=== PATIENT | male | born 1975 | race Caucasian/White ===

== ENCOUNTER 2016-11-14 13:21 | Emergency (ER) | payer BC ==
[2016-11-14 13:30] VITALS: BP 127/95
--- OUTSIDE RECORDS SUMMARY | 2016-11-14 13:41 | XMS REPORT | Continuity of Care Document ---
:1975 Demographics Home Phone [phone] Preferred Language Unknown Marital Status Unknown Nondenominational Affiliation Unknown Race Unknown Ethnic Group Unknown Author Organization [employer] [place] [address] Care Team Providers Name Role Phone Unavailable Primary Care Provider Unavailable Source Comments This disclosure is being made pursuant to the [employer] program and maynot contain all information available regarding this patient.[employer] Active Allergies and Adverse Reactions Not on File Current Medications Be aware that medications may not be up to date as of this document. Alwaysverify current medications with the patient. Not on file Active Problems Not on file Social History Tobacco Use Types Packs/Day Years Used Date Never Assessed Plan of Care Health Maintenance Due Date Last Done Comments Retired-Pertussis Vaccine Adult 1995 Retired-Tetanus Vaccine Adult 1995 Retired-INFLUENZA VACCINE 05/13/2015 Results from Last 3 Months Not on file
--- OUTSIDE RECORDS SUMMARY | 2016-11-14 13:41 | XMS REPORT | Continuity of Care Document ---
:1975 Author Organization [facility] ([facility]) Address [place] [address] Phone [phone] Care Team Providers Name Role Phone Provider, No-Primary Care Primary Care Provider Unavailable Source Comments This disclosure is being made pursuant to the Care Everywhere program, applicable federal and state laws, and may not contain all informaitonavailable regarding this patient.[facility] ([facility]) Active Allergies and Adverse Reactions No Known Allergies Current Medications No known medications Active Problems Not on file Social History Tobacco Use Types Packs/Day Years Used Date Never Assessed Last Filed Vital Signs Vital Sign Reading Time Taken Blood Pressure 154/94 07/21/2009 1:05 PM [employer] Pulse 86 07/21/2009 1:05 PM [employer] Temperature 36.5 C (97.7 F) 07/21/2009 1:05 PM [employer] Respiratory Rate 16 07/14/2009 10:30 AM [employer] Height 1.803 m (5' 11") 07/21/2009 1:05 PM [employer] Weight 104.7 kg (230 lb 13.2 oz) 07/21/2009 1:05 PM [employer] Body Mass Index 32.21 07/21/2009 1:05 PM [employer] Oxygen Saturation 98% 07/14/2009 10:30 AM [employer] Plan of Care Health Maintenance Due Date Last Done Comments Hepatitis B Vaccine (1 of 3 - Primary Series) 1975 Tdap Vaccine 1987 Lipid Disorder Screening 1994 MMR Vaccine 1994 Td Vaccine 1994 Influenza Vaccine: Seasonal (#1) 04/12/2016 Results from Last 3 Months Not on file
[2016-11-14] MEDS ORDERED: KETOROLAC TROMETHAMINE 30 MG/ML VIAL IM ONE (13:48)
[2016-11-14] MEDS ORDERED: CEPHALEXIN MONOHYDRATE 250 MG CAPSULE PO ONE (13:48)
[2016-11-14] MEDS ORDERED: oxyCODONE HCL/ACETAMINOPHEN 1 TAB TABLET PO ONE (13:48)
[2016-11-14] MEDS ORDERED: CEPHALEXIN MONOHYDRATE 250 MG CAPSULE ONE (14:09)
[2016-11-14] MEDS ORDERED: oxyCODONE HCL/ACETAMINOPHEN 1 TAB TABLET ONE (14:09)
[2016-11-14] MEDS ORDERED: KETOROLAC TROMETHAMINE 30 MG/ML VIAL ONE (14:09)
--- NOTE | 2016-11-14 14:49 | ERNOTE ---
Lower Extremity HPI - Narrative Date of Service: 11/14/16 - General Lower Extremities Pain: foot: right - Pain and Redness Time Seen by Provider: 11/14/16 13:34 Source: patient Exam Limitations: no limitations - Immun/Allergies/Home Medications Immunizations: IMMUNIZATION HX Immunizations Up to Date Yes History of Influenza Vaccine No Hx Pneumococcal Vaccination No Allergies/Adverse Reactions: Allergies Allergy/AdvReac Type Severity Reaction Status Date / Time No Known Allergies Allergy Verified 11/14/16 13:30 Home Medications: HOME MEDICATIONS Acetaminophen [Tylenol Extra Strength] 500 mg PO PRN PRN 03/31/13 [Last Taken 09:30] Cephalexin Monohydrate [Keflex] 500 mg PO QID #28 cap 11/14/16 [Last Taken Unknown] Cyclobenzaprine HCl [Flexeril] 10 mg PO TID PRN 11/14/16 [Last Taken Unknown] Indomethacin 50 mg PO BID #10 cap 11/14/16 [Last Taken Unknown] Meloxicam [Mobic] 15 mg PO DAILY 11/14/16 [Last Taken Unknown] Mirtazapine [Remeron] 30 mg PO DAILY 11/14/16 [Last Taken Unknown] traMADol HCL [Ultram] 50 mg PO Q8H #15 tablet 11/14/16 [Last Taken Unknown] - History of Present Illness Occurred: other - Since Location of Incident: home Method of Injury: Reports: no apparent injury. Denies: fell, direct blow, motor vehicle accident Reason for Fall: Reports: other - no Hx of fall given Loss of Consciousness: Reports: no loss of consciousness Modifying Factors - (Improves): Reports: other - nothing Modifying Factors - (Worsens): Reports: movement Associated Symptoms: Reports: none. Denies: snapping, popping sensation Other Injuries: Reports: none Subsequent Symptoms: Denies: sensory loss, numbness, motor loss, bowel/bladder problem Prior Treament: Denies: recently seen Review of Systems - Review of Systems Constitutional: Present: no symptoms reported EYE: Present: no symptoms reported ENT: Present: no symptoms reported Respiratory: Present: no symptoms reported Cardiology: Present: no symptoms reported Gastrointestinal/Abdominal: Present: no symptoms reported Genitourinary: Present: no symptoms reported Musculoskeletal: Present: joint pain - R foot Skin: Present: rash - R fooot Neurological: Present: no symptoms reported Endocrine: Present: no symptoms reported Hematologic/Lymphatic: Present: no symptoms reported Psych: Present: no symptoms reported All Other Systems: All systems neg except as marked - Patient's Past Medical History Patient History - Medical: Other Patient History - Cardiac/Respiratory: No pertinent hx Patient History - Cancer: No Hx of Cancer Patient History - Surgical Procedures: No surgical history Patient History - Other: None - Social History Living Situations: home Abuse History: No History of abuse Psych History: Hx of Depression Alcohol Use: none Drug Use: none - Immunizations Immunizations Up to Date: Yes Hx Pneumococcal Vaccination: No History of Influenza Vaccine: No Physical Exam - Physical Exam General Appearance: Present: wd/wn, alert, no apparent distress Eye Exam: Normal inspection: bilateral Ears, Nose, Throat: Present: normal ENT inspection Neck: Present: normal inspection Respiratory: Present: no respiratory distress Cardiovascular/Chest: Present: normal peripheral pulses Gastrointestinal/Abdominal: Present: normal bowel sounds, nontender, nondistended, soft, no organomegaly Back Exam: Present: normal inspection Extremity Exam: Present: pedal edema - mild, bony tenderness - Mid R foot area. Absent: decreased range of motion, calf tenderness, joint redness Neurological Exam: Present: alert, oriented, normal mood/affect, no motor/ sensory deficits Skin Exam: Present: other - There is erythema on the R foot area. No open wounds noticed. There is good pulse and sensation. Patient is noticed with loss of distal hair on the R leg area.. Absent: cyanosis, jaundice, pallor Lymphatic Exam: Present: no adenopathy ED Progress - Date and Time Seen: Date and Time: 11/14/16 14:36 Patient with no distress and no sepsis. - Vital Signs Patient's Vital Signs:: I have reviewed the patient's vital signs. Vital Signs: Vital Signs 11/14/16 13:24 Temperature 36.7 C Pulse Rate 111 H Respiratory 12 Rate Blood Pressure 127/95 O2 Sat by Pulse 99 Oximetry - X-Ray X-Ray #1 X-Ray: foot X-ray Comments: No Fx reported by Radiologist - Progress/Reassessment Chief Complaint: Foot Injury/Pain Progress:: Improved - Transfer of Care Expected Disposition: Discharge Departure Clinical Impression: Cellulitis Qualifiers: Site of cellulitis: unspecified site Qualified Code(s): L03.90 - Cellulitis, unspecified Gout attack Qualifiers: Gout site: foot Gout etiology: unspecified cause Laterality: right Qualified Code(s): M10.9 - Gout, unspecified - Departure Disposition: Home self-care Condition: Stable Instructions: Cellulitis, Adult, [id number], Foot Sprain Referrals: Jaz Dennis, [Primary Care Provider] - Prescriptions: Cephalexin Monohydrate [Keflex] 500 mg PO QID #28 cap Indomethacin 50 mg PO BID #10 cap traMADol HCL [Ultram] 50 mg PO Q8H #15 tablet
== END 2016-11-14 14:55 | disposition home or self-care (01) ==
LOC: ER 13:21
DX: L03.90 Cellulitis, unspecified (principal); M10.9 Gout, unspecified